=== PATIENT | female | born 1990 | race Caucasian/White ===

== ENCOUNTER → 2019-11-02 12:28 | Outpatient (CLI) | payer BC, SELFPAY ==
--- NOTE | ~2019-11-02 | US_ITS ---
EXAMINATION: US pelvic complete DATE: 11/02/2019 12:43 INDICATION: Displacement of IUD. Pelvic pressure. Comparison:Ultrasound dated 08/24/2018 TECHNIQUE: Multiple transabdominal sonographic images of the pelvis performed. FINDINGS: The uterus measures 9.7 x 3.3 x 4.7 cm. There is an IUD present in expected position in the endometrium. The endometrial complex measures 6 mm. The right ovary measures 3.4 x 2.3 x 2 cm and the left ovary measures 4.1 x 2.3 x 2.2 cm. There are small follicles in each ovary. There is no free fluid in the pelvis. There are no abnormal masses seen on either side. IMPRESSION: 1. Unremarkable pelvic ultrasound. Reviewed, dictated and finalized at location A.
== END ==
PROVIDERS: PCP Family Medicine; Visit Provider Nurse Practitioner
DX: T83.32XA Displacement of intrauterine contraceptive device, initial encounter (principal)
CPT/HCPCS: 76856

== ENCOUNTER 2020-09-12 15:55 | Outpatient (CLI) | payer OTHER, MEDICAID, SELFPAY ==
--- NOTE | ~2020-09-12 | US_ITS ---
EXAMINATION: US pelvic complete w TV EXAM DATE: 09/12/2020 16:39 INDICATION: Pelvic pain. TECHNIQUE: Pelvic transabdominal and transvaginal sonogram was performed. There are multiple graysca le and Doppler images available for interpretation. Comparison is made to prior examination from 11/01. FINDINGS: Uterus measures 7.7 x 2.8 x 3.5 cm, with IUD centrally located inside the endometrial cavi ty. Endometrial stripe measures 3 mm, within normal limits. There is no free pelvic fluid. Right adnexa: The ovary is not identified. There is no adnexal mass. Left adnexa: The ovary measures 3.3 x 1.7 x 1.7 cm and is morphologically normal. Ovarian vascular fl ow confirmed. IMPRESSION: 1. Unremarkable pelvic ultrasound exam. Reviewed, dictated and finalized at location A.
== END 2020-09-12 15:56 | disposition home or self-care (01) ==
LOC: ANHIMG 15:59
PROVIDERS: PCP Family Medicine; Visit Provider Nurse Practitioner
DX: T83.32XA Displacement of intrauterine contraceptive device, initial encounter (principal); R10.2 Pelvic and perineal pain
CPT/HCPCS: 76830; 76856

== ENCOUNTER 2022-10-02 17:31 | Outpatient (CLI) | payer BC, SELFPAY ==
--- NOTE | ~2022-10-02 | XR_ITS ---
EXAM: XR knee LT 3V DATE: 10/02/2022 17:53 HISTORY: left knee pain . COMPARISON: None available. FINDINGS: Normal mineralization. No fracture or dislocation. No lytic or blastic lesion. Joint space s are maintained. No erosion or periosteal change. Soft tissues within normal limits. IMPRESSION: Normal left knee radiograph findings. Reviewed, dictated and finalized at location K.
== END 2022-10-02 17:32 ==
PROVIDERS: PCP Family Medicine; Visit Provider Physician Assistant
DX: M25.562 Pain in left knee (principal)
CPT/HCPCS: 73562

== ENCOUNTER 2023-08-26 00:33 | Day surgery (SDC) | payer BC, SELFPAY ==
[2023-08-15 10:38] VITALS: BMI 35.3
[2023-08-26 11:34] VITALS: BP 122/96; PULSE 77; RESP 18; TEMP 36.4; O2SAT 100
--- NOTE | 2023-08-26 11:42 | WPDANESEPPF ---
Anes - Initial Pre Proc Eval Procedure: Operation Date: 08/26/23 14:30 Proposed Procedures p Colonoscopy - Daniel Plata MD Date/Time: 08/26/23 11:42 Surgeon: Daniel Plata MD Pre Op Diagnosis: Hemorrhage of anus and rectum Patient Data Age: 33 Gender: F Height: 1.57 m Weight: 86.3 kg Last Vital Signs Temp 97.6 F 08/26/23 11:34 Pulse 77 08/26/23 11:34 Resp 18 08/26/23 11:34 BP 122/96 H 08/26/23 11:34 Pulse Ox 100 08/26/23 11:34 O2 Del Method Room Air 08/26/23 11:34 Allergies Allergy/AdvReac Type Severity Reaction Status Date / Time cephalexin Allergy Intermediate Hives Verified 08/26/23 11:32 Home Medications Medication Instructions Recorded Confirmed Type albuterol sulfate 90 mcg/actuation 1 inh inhalation Q4H PRN shortness 02/17/23 08/15/23 Rx aerosol inhaler of breath or wheezing #6.7 grams phentermine 37.5 mg tablet 37.5 mg PO DAILY #30 tabs 07/22/23 08/15/23 Rx Women's Probiotic 1 tab-cap PO DAILY 08/15/23 08/15/23 History methocarbamol 750 mg tablet 750 mg PO BID PRN Spasms 08/15/23 08/15/23 History Patient hx anesthesia problems: none Family hx anesthesia problems: none Results Review: All pre-operative results and documents have been reviewed as part of the pre-operative evaluation. [facility] Past Medical History Medical History ADD (attention deficit disorder) Family History Family History Grandparent Hypertension Cerebrovascular accident Father COPD (chronic obstructive pulmonary disease) Mother Hyperlipidemia Irritable bowel syndrome Depression Hypertension Social History Social History (Updated 07/22/23 @ 10:50 by Gloria Fritz MA) Years smoked: 10 Smoking status: Former smoker Tobacco type: cigarettes Alcohol intake: current Substance use: never Substance use type: does not use Do You Feel Safe in your Home?: Yes Lack of Transportation: No Lack of Food: Never True Current Housing: I Have Housing Concerned About Future Housing: No Difficulty Paying Gas/Electric Bills: No Difficulty Paying for Meds: No Currently Unemployed: No Education: Trade/Vocational Certificate Difficulty w/ Childcare or Family Care: No Living arrangements: with family Occupation/Education: occupation Gender identity (if verbalized by the patient): Female Sexual Orientation (if Verbalized by the Patient): Straight or Heterosexual Spiritual care concerns: No Anes - Eval Final PreProcedure Day of Procedure 08/26/23 11:42 Patient weight: obese Heart: regular rate and rhythm Lungs: clear to auscultation Airway: Mallampati scale class II Neurological: alert and oriented Last oral intake: >/= 8 hours ASA classification: II Emergent: no Anesthetic plan: proceed Anesthesia type and monitoring: general GIVS and standard monitoring Results Review: All pre-operative results and documents have been reviewed as part of the pre-operative evaluation. Informed Consent: The patient's anesthetic plan and its attendant risks and benefits were discussed with the patient/family/POA. Questions were solicited and answers provided to the satisfaction of the patient/family/POA.
[2023-08-26] MEDS: LACTATED RINGERS 1,000 ML 150 ML IV CONT (11:43)
--- NOTE | 2023-08-26 11:51 | PM.HPGS ---
History of Present Illness History of Present Illness Consent: Risks, benefits, and alternatives have been discussed and questions answered. Patient agrees to proceed with procedure. Chief complaint: Hemorrhage of anus and rectum Narrative: Sara Kennedy is a 33 year old female with episode of rectal bleeding, never had colonoscopy Review of Systems Review of Systems: All systems reviewed & are unremarkable except as noted in HPI and below PMFSH Past Medical History Medical History (Updated 08/26/23 @ 11:55 by Daniel Plata MD) ADD (attention deficit disorder) Rectal bleeding Family History Family History Grandparent Hypertension Cerebrovascular accident Father COPD (chronic obstructive pulmonary disease) Mother Hyperlipidemia Irritable bowel syndrome Depression Hypertension Social History Social History (Updated 07/22/23 @ 10:50 by Gloria Fritz MA) Years smoked: 10 Smoking status: Former smoker Tobacco type: cigarettes Alcohol intake: current Substance use: never Substance use type: does not use Do You Feel Safe in your Home?: Yes Lack of Transportation: No Lack of Food: Never True Current Housing: I Have Housing Concerned About Future Housing: No Difficulty Paying Gas/Electric Bills: No Difficulty Paying for Meds: No Currently Unemployed: No Education: Trade/Vocational Certificate Difficulty w/ Childcare or Family Care: No Living arrangements: with family Occupation/Education: occupation Gender identity (if verbalized by the patient): Female Sexual Orientation (if Verbalized by the Patient): Straight or Heterosexual Spiritual care concerns: No Meds Home Medications and Allergies Home Medications Medication Instructions Recorded Confirmed Type albuterol sulfate 90 mcg/actuation 1 inh inhalation Q4H PRN shortness 02/17/23 08/15/23 Rx aerosol inhaler of breath or wheezing #6.7 grams phentermine 37.5 mg tablet 37.5 mg PO DAILY #30 tabs 07/22/23 08/15/23 Rx Women's Probiotic 1 tab-cap PO DAILY 08/15/23 08/15/23 History methocarbamol 750 mg tablet 750 mg PO BID PRN Spasms 08/15/23 08/15/23 History Allergies Allergy/AdvReac Type Severity Reaction Status Date / Time cephalexin Allergy Intermediate Hives Verified 08/26/23 11:32 Vital Signs Vital Signs - 24 hr 08/26/23 11:34 Temperature 97.6 F Pulse Rate 77 Respiratory Rate 18 Blood Pressure 122/96 H Pulse Oximetry 100 Oxygen Delivery Room Air Exam Const: General: comfortable and no acute distress HENMT: Face/Nose/Sinus: Normal nares present Eyes: General: appearance normal, both eyes and all related structures Neck: Neck: no JVD Resp: Auscultation: clear to auscultation bilaterally Cardio: Rate: regular rate Rhythm: regular rhythm GI: Inspection: non-distended GI Palp: Yes Soft to palpation Skin: General skin exam: normal color Neuro: General: gait normal Speech: normal speech Extrem: General: normal to inspection Psych: Mental Status: mental status grossly normal Assessment and Plan Assessment and plan (1) Rectal bleeding: Code(s): K62.5 - Hemorrhage of anus and rectum Status: Acute Assessment and Plan: probably perianal colonoscopy
[2023-08-26 12:08] VITALS: BP 104/64; PULSE 76; RESP 20; O2SAT 100
[2023-08-26 12:18] VITALS: BP 111/76; PULSE 70; RESP 24; O2SAT 100
[2023-08-26 12:28] VITALS: BP 103/83; PULSE 63; RESP 20; O2SAT 100
== END 2023-08-26 12:37 | disposition home or self-care (01) ==
PROVIDERS: PCP Family Medicine; Referring Provider Family Medicine; Visit Provider Internal Medicine Gastroenterology
PROC: 0DJD8ZZ Inspection of Lower Intestinal Tract, Via Natural or Artificial Opening Endoscopic (ICD-10-PCS; CPT 45378; principal; 2023-08-26 14:30)
DX: K92.1 Melena (principal); K64.8 Other hemorrhoids; F98.8 Other specified behavioral and emotional disorders with onset usually occurring in childhood and adolescence; E66.9 Obesity, unspecified; Z68.34 Body mass index [BMI] 34.0-34.9, adult; Z79.51 Long term (current) use of inhaled steroids; Z87.891 Personal history of nicotine dependence; Z82.49 Family history of ischemic heart disease and other diseases of the circulatory system
CPT/HCPCS: 45378; J2704; J7120

== ENCOUNTER 2024-11-03 14:18 | Outpatient (CLI) | payer BC, SELFPAY ==
--- NOTE | ~2024-11-03 | MR_ITS ---
MRI of the right knee Clinical history: Injury Technique: Coronal proton density and proton density-weighted images, sagittal proton-density and T2 fat-sat images, and axial proton-density fat-saturated images were acquired. Findings: Anterior and posterior cruciate nodes are intact. Medial collateral ligament and the latera l collateral ligament complex are intact. Popliteus tendon is intact. Medial and lateral menisci are intact, without evidence of tear. Articular cartilage is well preserved throughout the knee. Bone marrow signals are unremarkable. Extensor mechanism is intact. No joint effusion. There is a large fluid collection in the anterior torres bcutaneous soft tissues at the distal thigh and prepatellar region, measuring up to approximately 7.9 x 2.4 x 9.0 cm in extent. Impression: Large fluid collection in the anterior subcutaneous soft tissues measuring at least 7.9 x 2.4 x 9.0 c m. Correlate for bursitis or posttraumatic fluid collection, including possibility of Riley-Lavalee l esion. No osseous or articular reality evident otherwise. Reviewed, dictated and finalized at location . Impression: Large fluid collection in the anterior subcutaneous soft tissues measuring at l east 7.9 x 2.4 x 9.0 cm. Correlate for bursitis or posttraumatic fluid collecti on, including possibility of Riley-Lavalee lesion. No osseous or articular reality evident otherwise.
== END 2024-11-03 14:19 | disposition home or self-care (01) ==
LOC: GOSHIMG 14:18
DX: S89.91XA Unspecified injury of right lower leg, initial encounter (principal); S80.01XA Contusion of right knee, initial encounter; R26.89 Other abnormalities of gait and mobility; X58.XXXA Exposure to other specified factors, initial encounter
CPT/HCPCS: 73721

== ENCOUNTER 2024-12-09 03:01 | Day surgery (SDC) | payer BC, SELFPAY ==
[2024-12-02 11:01] VITALS: BMI 34.2
--- NOTE | 2024-12-02 11:08 | PC.NURSE ---
Report to the Outpatient Waiting Room, entrance under the green pavilion located off [facility], at time _0830_ on date _[id number]_. Planned Procedure Time: _1030_.? Time changes happen often and if your time is changed the preop area will call you the afternoon before. - You and your visitor will be asked to self-screen and do not enter if you have any COVID symptoms. Please call surgeon if you need to reschedule. - A mask is optional within the hospital at this time. Patients may have clear liquids (water, carbonated beverages, clear teas, apple juice) until 3 hours prior to surgery with a maximum of 20 ounces. - No food from midnight until time of surgery and no smoking, or chewing tobacco (or any form of nicotine). No chewing gum, candy or mints. Take only the following medications with a SIP of water on the morning of surgery: ___None____ DO NOT STOP ANY OF YOUR OTHER PRESCRIPTION MEDICATIONS PRIOR TO SURGERY EXCEPT THE FOLLOWING Hold all vitamins and supplements for 3 days per anesthesiologist. Medications to discontinue per physician ___Ibuprofen stop now. ____Acetaminophen OK to take. Date to take last dose Please no make-up, nail romanian, hairspray, perfume, deodorant, or body powder the day of surgery.? No jewelry (including any body piercings) or valuables the day of surgery, leave them at home.? Please take a shower or bath the night before, or the morning of, surgery with an antibacterial soap.? Wear comfortable, loose fitting clothing.? - Jewelry must be removed prior to entering the operating room.? Rings and piercings that are not removed may be cut off. - The hospital will not accept responsibility for valuables.? - Please leave all valuables, including medications, at home the day of surgery. If you are going home after surgery, a licensed sales route driver helper must drive you home.? - NO public transportation without another adult if you receive anesthesia. - We recommend that an adult stay with you for 24 hours following discharge. - We also recommend that you do not drive, make important decision, drink alcoholic beverages, or take any drugs that were not prescribed by your health care provider for at least 24 hours after your discharge time. Follow any additional instructions given to you from your surgeon. Telephone instructions given to __Sara___and asked if any additional questions and then verbalized understanding. Patient advised to call surgeon office or pre surgery nurse liaison [phone] if any additional questions.
[2024-12-09] VITALS (9 sets, daily range): BP systolic 100–119; BP diastolic 63–82; PULSE 62–99; RESP 11–18; TEMP 36–36.4; O2SAT 97–100
--- OUTSIDE RECORDS SUMMARY | 2024-12-09 03:03 | XMS_ITS | Continuity of Care Document ---
Author Organization [facility]. If a dditional information is needed, contact Health Information Management at [phone] Address [address] [place] [address] Phone Care Team Providers Care Parking Lot Supervisor Name Role Phone Unavailable Unavailable Unavailable Unavailable Unavailable Unavailable Unavailable Unavailable Unavailable Unavailable Unavailable Unavailable Problems Traumatic hematoma Onset:16-Oct-2024 León Pate DO Traumatic hematoma Onset:16-Oct-2024 León Pate DO Allergies and Adverse Reactions Cephalexin(Allergy) Onset: 16-Oct-2024 Reaction:HIVES Medications methocarbamol 750 MG Oral Tablet [Robaxin];750 MILLIGRAM X1ED Quantity:1 León Pate DO Start:22-Mqu-6941Gyf:16-Oct-2024 Comments:[id number] oxyCODONE hydrochloride 5 MG Oral Tablet;10 MILLIGRAM X1ED Quantity:2 León Pate DO Start:38-Nzs-1864Txc:16-Oct-2024 Comments:[id number] Administration Instructions:Monitor patient for risk of fall acetaminophen 325 MG Oral Tablet [Tylenol];325 MILLIGRAM X1ED Quantity:1 León Pate DO Start:03-Ybd-9880Coi:16-Oct-2024 Comments:[id number] Administration Instructions:Limit total acetaminophen dose to 4 grams daily; limit totalacetaminophen dose to 2 grams daily for patients withhepatic dysfunctionIf this medication is ordered PRN Temp >, follow thePRN Antipyretic Sequence per P T/MEC 1 ML ketorolac tromethamine 30 MG/ML Injection;30 MILLIGRAM X1ED Quantity:1 León Pate DO Start:82-Wee-0035Noy:16-Oct-2024 Comments:[id number] Administration Instructions:IV push over 15 secondsPLEASE CHECK PATIENT'S AGENOTE: DO NOT DISPENSE IF SCr IS > 5 MG/DLDECREASE DOSE TO 15 MG IF CRCL<30 ML/MIN OR PT>65 YO acetaminophen 325 MG / HYDROcodone bitartrate 5 MG Oral Tablet [Cantil];1 TABLET X1ED Quantity:1 León Beronica Herlinda ROSADO Start:71-Jzv-9542Rmr:16-Oct-2024 Comments:[id number] Administration Instructions:Limit total acetaminophen dose to 4 grams daily; limit totalacetaminophen dose to 2 grams daily for patients withhepatic dysfunctionMonitor patient for risk of fall Procedures RT KNEE AP/LAT/1 OBLIQ/TUNNELResult:[facility] NASIR [facility]IRARD [facility] Phys: Beronica Traore DO [address] [facility] : 1990 Age: 34 Sex: [place] [address] Acct: [id number] Loc: [facility]SIE PHONE #: Exam Date: 10/16/2024 Status: REG ER FAX #: Radiology No: Unit No: [id number] EXAMS: REASON FOR EXAM: CPT CODE: [id number] XR KNEE RIGHT AP/LAT/1O right knee injury 69402 PROCEDURE: XR Right Knee Complete, 4 or More Views CLINICAL INDICATION: right knee injury; INJURY-ACCIDENT TECHNIQUE: Four or more views of the right knee. COMPARISON: None available. FINDINGS: BONES/JOINTS: Unremarkable. No acute fracture. No dislocation. SOFT TISSUES: Pronounced prepatellar and distal anterior leg soft tissue swelling/hematoma. IMPRESSION: 1. No acute fracture or dislocation. 2. Pronounced prepatellar and distal anterior leg soft tissue swelling/hematoma. Electronically signed by: Roldan Travis MD 10/16/2024 05:15 AM PDT at 0515 Reported and signed by: Roldan Travis MD CC: Tech: ANEUDY Whitney Time: DAP (Gy m2): Air Kerma: CTDI: CTDI/DLP: Trnscrbd Dt/Tm: 10/16/2024 (05) PWS Electronic Signature Date/Time: 10/16/2024 (15)Printed Date/Time: 10/16/2024 (0517) BATCH NO: N/A PAGE 1 Signed Report Date:16-Oct-2024 Status:Completed Social History Smoking Status Never smoked tobacco Recorded: 16-Oct-2024 Vital Signs 16-Oct-2024 02:30 Vkxivokmzwr62.9f Comments:98.9 Pulse87/min Comments:87 Respiratory Rate17/min Comments: 17 O2 SAT95% Comments:95 BP Blvbzgef242wl[Hg] Comments:12 7 BP Qcrqtnbvn22ov[Hg] Comments:87 Oxygen delivery devices: Comment s:Room air Height5.9773655[ft_us] Comments: 5 Jyufrm39.364kg Comments:86.364 16-Oct-2024 02:30 BMI34.8kg/m2 Comments:34.8 Encounters Emergency Encounter Reason:INJURY-ACCIDENT Encounter Diagnosis:Contusion of unspecified thigh, initial encounter,Unspecified fall, initial encounter,Activity, soccer,Contusion of right knee, initial encounter 16-Oct-2024 02:40Md18-Phq-2924 06:05 [facility] Discharge Disposition:Discharged to home or self care (routine discharge) León Pate BP-08-Xib16-Oct-2024 [facility]EMERGENCY PROVIDER REPORTREPORT#:[id number] REPORT STATUS: SignedDATE:10/16/24 TIME: 0338PATIENT: NASIR GIRARD UNIT #: [id number]#: [id number] ROOM/BED:: 90 AGE: 34 SEX: F PCP PHYS: NO PRIMARY OR FAMILY PHYSICIANSERVICE AUTHOR: Beronica Traore SRV REP SRV TM: 0220* ALL edits or amendments must be made on the electronic/computer document *HPI-Knee Prob/InjGeneralConfirmed Patient YesInitial Greet Date/Time 10/16/24 022PresentationChief Complaint Knee injury R, Knee swelling RHx Obtained From PatientPast Medical History - AdultStated Complaint INJURY-ACCIDENTAllergiesCoded Allergies:cephalexin (From KEFLEX) (HIVES 10/16/24)Calculated Suicide Risk (nurs) No riskSmoking status for patients 13 years old or older: Never SmokerPhysical ExamVital SignsVital SignsFirst Documented: Result Date Time Pulse Ox 95 10/16 0230 B/P 127/87 10/16 0230 O2 Delivery Room air 10/16 0230 Temp 98.9 10/16 0230 Pulse 87 10/16 0230 Resp 10/16 0230Last Documented: Result Date Time Pulse Ox 95 10/16 0230 B/P 127/87 10/16 0230 O2 Delivery Room air 10/16 0230 Temp 98.9 10/16 0230 Pulse 87 10/16 0230 Resp 17 10/16 0230Review of Vital Signs ReviewedFree Text PE NotesFree Text PE NotesGeneral: Awake, Alert, No acute distress, Not toxic appearing.Head: Atraumatic, Normocephalic.Eyes: PERRLA, EOMI B/L.ENT: Airway patent, Mucous membranes moist.Neck: Supple, No nuchal rigidity, Negative Brudzinski's, Full ROM.Chest/Resp: Breath sounds normal, No respiratory distress, No wheezing /stridor, No chest wall tenderness / deformity / crepitus.Cardio: Rate normal, Regular rhythm. Peripheral pulses intact. Cap refill <2seconds. 2+ DP and PT pulses B/L.Abdomen: Soft, Nontender. No guarding or rebound tenderness. No CVA tenderness B/L.MSK/skin: Large amount of bruising, swelling and hematoma noted over patient'santerior right knee and just superior to patient's right knee limiting hermobility/ROM of her right knee due to the amount of pain and swelling. Nosignificant increased warmth or redness. No acute deformity /decreased ROM. Noother significant tenderness or swelling / edema of BLE's or bony pelvis. Allmuscular compartments soft. Negative Valladares's test bilaterally. Skin colorotherwise normal, Warm, Dry, Intact. No crepitus, petechiae, rash, cyanosis orpallor.Neuro: A O x3, GCS 15, No facial asymmetry, No dysarthria, No motor deficits, Nosensory deficits. Pt able to move all 4 extremities upon command voluntarilywithout issue.Interpretation DiagnosticsLab Results InterpretationResultsRecent Impressions:RADIOLOGY - XR KNEE RIGHT AP/LAT/1OBLQ/TNL 10/16 0304 Report Impression - Status: SIGNED Entered: 10/16/2024 0517IMPRESSION:1. No acute fracture or dislocation.2. Pronounced prepatellar and distal anterior leg soft tissueswelling/hematoma.Electronically signed by: Roldan Travis MD 505:15 AM PDT RP Workstation: [id number] By: VANDANA - Roldan Travis,OCHOAe-Evaluation MDMFree Text MDM NotesAdditional TextPRESENTING PROBLEM: R knee injuryIndependent history provided by: PatientHPI:Patient is a 34-year-old female who denies any PMH who is presenting to the EDvia walk-in accompanied by her friend for evaluation of a right knee injury.Patient states there visiting from out of town and [place] drive [place] to [place] the morning. 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 Since then patient has worsening swelling, bruising and painin her right knee which is currently 10/10 in severity in his developed a pins/needles sensation on her right knee. Concerned she could have broken somethingshe came to the ED for evaluation. Patient denies any pain or injury anywhereelse, being on any blood thinners, any history of bleeding or clotting disorder,weakness, SOB, CP, head injury, abd pain, or any other symptoms or complaints.Complete ROS is obtained. All systems reviewed and negative unless otherwisenoted in the HPI.Past medical history: [Please refer to nursing documentation].Past surgical history: [Please refer to nursing documentation].Past family history: [None significant or pertinent to the chief complaint].I have confirmed the patient and have reviewed and agree with the availablenursing notes.EXTERNAL RECORDS:Reviewed prior medical records and PCI.PHYSICAL EXAM: Full detailed physical exam documented in Focused PE section seenabove. Please refer to this section for further details.RISK ASSESSMENT:Please see Risk Section for further detail (if applicable).INDEPENDENT INTERPRETATIONS:My independent interpretation of imaging:XR imaging of pt's right knee was obtained which returned remarkable forpronounced prepatellar and distal anterior leg soft tissue swelling/hematoma.XR imaging o/w unremarkable / negative for acute process. No evidence of acutefracture / dislocation / subluxation, retained radiopaque foreign body,necrotizing infection / fasciitis, osteomyelitis, or other acute processappreciated.RADIOLOGY STUDIES: Radiology studies were interpreted by the radiologist.Radiology studies have been ordered, with independent interpretations of theresults reviewed and considered in the medical decision making process by myself, the ED physician (see MDM for further detail).SHARED DECISION MAKING: All aspects of care were discussed, and patient and/orresponsible parties was / were intimately involved in today s workup.MDM / DIFFERENTIAL DIAGNOSES CONSIDERED:My independent interpretations of any tests (such as labs, EKG, imaging, orotherwise) in addition to differential diagnoses considered and use of riskassessment tools / reasoning asindicated in specified sections above or in MDM / re-evaluation / progress note(s).Upon initial arrival to the ED, patient is in no acute distress, VSS. Physicalexam as indicated above.Based on patient's Hx, physical exam, and workup in the ED, patient's Sx's mostlikely secondary to pronounced hematoma and soft tissue swelling of anteriorright knee secondary trauma. Per patient's request after discussion of risksversus benefits, small pocket of on coagulated hematoma able to be appreciatedon ultrasound imaging so attempted to aspirate with 18 gauge needle (which wasperformed under US guidance guidance at ED bedside by myself), however I wasonly able aspirate 5 cc of blood; regardless patient reported improvement insymptoms with this. No evidence of / low suspicion for acute fracture /subluxation / dislocation, compartment syndrome, acute ischemic limb or vascularinjury / compromise, infection / abscess, necrotizing infection / fasciitis,septic arthritis, septic thrombophlebitis, lymphangitis, osteomyelitis, Achillestendon rupture, DVT, SVT, mass / malignancy, or other acute process requiringfurther evaluation in the ED or hospital or emergent specialty consultation.Patient and / or responsible parties were counseled on results and the plan ofcare, importance of close outpatient f/u with their PCP, and all of patient's Q's were answered. Patient was given crutches if appropriate and counseled on theuse by ED nursing staff prior to discharge. Patient and / or responsibleparties were counseled on RICE therapies, conservative management of symptoms athome, and return precautions to the ED. Patient was subsequently discharged instable condition.This note was partially created using voice recognition software and isinherently subject to errors including dose of syntax and sound alikesubstitutions which may escape proof reading. In such instances, originalmeaning may be extrapolated by contextual derivation.Re- Evaluation/Progress Compartment SyndromeThere are no signs or symptoms of compartment syndrome in the injured extremityat the time of this examination. Any pain the patient has is in proportion tothe injury, the peripheral circulation is intact, capillary refill is notdelayed, and there is no numbness, tingling or paresthesia.ED CourseMedication(s) OrderedMedication(s) Ordered:Autonomic Drugs Sig/Noe Start time Last Medication Dose Route Stop Time Status Admin Methocarbamol 750 MG X1ED STA 10/16 0533 DC 10/16 PO 10/16 0534 0536Central Nervous System Agents Sig/Noe Start time Last Medication Dose Route Stop Time Status Admin Oxycodone HCl 10 MG X1ED STA 10/16 0527 DC / PO 10/16 0528 0536 Oxycodone HCl 5 MG X1ED STA 10/16 0526 CAN PO 10/16 0527 Acetaminophen 325 MG X1ED STA 10/16 0228 DC / PO 10/16 0229 0239 Hydrocodone Bitart/ 1 TAB X1ED STA 10/16 0228 DC 10/16 Acetaminophen PO 10/16 0229 0239 Ketorolac 30 MG X1ED STA 10/16 0228 DC 10/16 Tromethamine IM 10/16 0229 0239Patient Discharge DepartureVital Signs/ConditionVital SignsFirst Documented: Result Date Time Pulse Ox 95 10/16 0230 B/P 127/87 10/16 0230 O2 Delivery Room air 10/16 0230 Temp 98.9 10/16 0230 Pulse 87 10/16 0230 Resp 17 10/16 0230Last Documented: Result Date Time Pulse Ox 95 / 0230 B/P 127/87 10/16 0230 O2 Delivery Room air 10/16 0230 Temp 98.9 10/16 0230 Pulse 87 / 0230 Resp 17 10/16 0230All vital signs available at the time of this entry have been reviewed.Condition Stable, ImprovedClinical ImpressionClinical ImpressionPrimary Impression: Traumatic hematoma of right kneeSecondary Impressions: Traumatic hematoma of thighDisposition DecisionDischarge )( Discharged to Home Yes )( Time 0533 )( Date 10/16/24Discharge/Care PlanCounseled Regarding Diagnosis, Imaging studies, Prescriptions, Need for transfer, Need for follow-up, Wound care(Auto) PrescriptionsCurrent Visit ScriptsACETAMINOPHEN (TYLENOL EXTRA STRENGTH TAB) 1,000 MG PO Q6H PRN PRN FEVER AND/ORPAIN ACETAMINOPHEN (TYLENOL EXTRA STRENGTH TAB) 1,000 MG PO Q6H PRN PRN FEVERAND/OR PAIN #60 TABIBUPROFEN (MOTRIN 800 MG) 800 MG PO Q6H PRN PRN PAIN/INFLAMMATION IBUPROFEN (MOTRIN 800 MG) 800 MG PO Q6H PRN PRN PAIN/INFLAMMATION #30 TABMethocarbamol (ROBAXIN 500 MG) 1,000 MG PO QID Methocarbamol (ROBAXIN 500 MG) 1,000 MG PO QID #56 TAB As needed for muscle spasm painLIDOCAINE (LIDODERM PATCH 5%) 1 PATCH TRANSDERM DAILY LIDOCAINE (LIDODERM PATCH 5%) 1 PATCH TRANSDERM DAILY #30 PATCH Apply for 12 hours then remove for 12 hours.Patient Instructions Acute Knee Pain, Adult, ED Compartment Syndrome Risk, EDHematoma, RICE Therapy for Routine Care of Injuries, Oqbv-zl-MewtLmmnuevaePorexlfw Referral: NO PRIMARY OR FAMILY PHYSICIANProvider Referral: Darshan Sawant MD Follow-Up: 1-2 DAYS Notes: Set an appointment with your PCP (or the listed physician to establish a PCP if you do not already have one) regarding your symptoms, ED visit and workup, and any persistent / incidental findings for re-evaluation, follow- up, and potential need for further workup and management and to discuss referral to Orthopedic surgery for potential need for further evaluation for ligamentous injury of the knee or other traumatic injury complication Address: [address] [place] [address], [address] [address]Iugqrpvni FormsWORK EXCUSE Extremity Inj Discharge NoteThe patient is discharged home with supportive care, a plan for pain control,and follow-up instructions that detail what to expect over the next 48 hours andwhat symptoms should prompt immediate return to the ED, including the symptomsof compartment syndrome. Follow-up instructions have been explained in detail tothe patient, and the instructions have been provided in written format. Thepatient is comfortable with the plan of care and has expressed an understandingof the discharge instructions. The patient is aware that any significant changein condition or worsening of symptoms should prompt an immediate call to theprimary or designated physician. If that is not successful the patient shouldcall or return to this or the closest emergency department or call 911. at 0535RPT #: [id number] OF REPORT Plan of Treatment Future Tests Future scheduled test information is unavailable Pending Tests Pending diagnostic test information is unavailable Future Visits Future appointment information is unavailable Referrals to Other Providers Reason for Referral Referral Start Date Provider Provider Contact Information Provider Address NO PRIMARY OR FAMILY PHYSICIAN Set an appointment with your PCP (or the listed physician to establish a PCP if you do not already have one) regarding your symptoms, ED visit and workup, and any persistent / incidental findings for re-evaluation, follow-up, and potential need for further workup and management and to discuss referral to Orthopedic surgery for potential need for further evaluation for ligamentous injury of the knee or other traumatic injury complication Darshan Sawant MD Work Phone: [phone] [facility], [address] [address] Future Procedures Future procedure information is unavailable Future Medications Future medication information is unavailable Patient Instructions Instruction Admit Date Acute Knee Pain, Adult October 16, 2024 4 :19am RICE Therapy for Routine Care of Injurie s, [facility]awy October 16, 2024 4:19am ED Hematoma October 16, 2024 4:19 am ED Compartment Syndrome Risk October 16, 2024 4:19am Assessments Diagnosis Onset Date Resolution Status Admit Date Traumatic hematoma of right knee Act keyona October 16, 2024 4:19am Traumatic hematoma of thigh Active October 16, 2024 4:19am
--- OUTSIDE RECORDS SUMMARY | 2024-12-09 03:03 | XMS_ITS | Continuity of Care Document ---
Author Organization [facility] Address [address] [place] [address] Phone Care Team Providers Care [employer] Employee Name Role Phone Lechuga OD, Florentino Unavailable Unavailable Advance Directives Directive Yes / No Effective Date File Name No Information Encounters Encounter Description Practice Location Reason(s) For Visit Diagnoses Date Provider Providers Copied on Encounter [facility], [address], [place], [place], [id number], [place] tel:[phone] [facility] No Information [address] Lechuga OD Florentino. [address], [place], [address], [place]. tel:[phone] Family History Family Member Type Diagnosis Age At Onset No Information Payers Payer name Insurance type Covered alliance party ID Authoriza tion(s) Medicaid [facility] [id number] Social History Type Description Quantity Date Captured [...]
--- NOTE | 2024-12-09 06:39 | WPDHPUPDATE1 ---
History and Physical Update Update Date/Time: 12/09/24 06:39 History and Physical has been reviewed, including an updated exam of the patient. There are NO changes in the patient's condition. Risks, benefits, and alternatives have been discussed and questions answered. Patient agrees to proceed with procedure.
[2024-12-09] MEDS: ACETAMINOPHEN 500 MG TABLET 1000 MG PO (09:41)
[2024-12-09] MEDS: KETOROLAC 15 MG/ML VIAL (*BKC) IV PUSH (09:41)
[2024-12-09] MEDS: LACTATED RINGERS 1,000 ML 30 ML IV CONT ×2 (10:00→11:22)
--- NOTE | 2024-12-09 10:00 | P.PNAN_ITS ---
Anes - Initial Pre Proc Eval Procedure: Operation Date: 12/09/24 10:30 Proposed Procedures p Right Knee Debridement - Leonardo Rider MD Date/Time: 12/09/24 10:00 Surgeon: Leonardo Rider MD Pre Op Diagnosis: right knee hematoma Patient Data Age: 34 Gender: F Height: 1.59 m Weight: 86.5 kg Last Vital Signs Temp 36.0 C L 12/09/24 09:42 Pulse 72 12/09/24 09:42 Resp 15 12/09/24 09:42 BP 119/78 12/09/24 09:42 Pulse Ox 100 12/09/24 09:42 O2 Del Method Room Air 12/09/24 09:42 Allergies Allergy/AdvReac Type Severity Reaction Status Date / Time cephalexin Allergy Intermediate Hives Verified 12/09/24 09:40 Home Medications ?Medication ?Instructions ?Recorded ?Confirmed ?Type Women's Probiotic 1 tab-cap PO DAILY 08/15/23 12/02/24 History phentermine 37.5 mg tablet 37.5 mg PO DAILY #30 tabs 10/01/24 12/02/24 Rx gabapentin 300 mg capsule 300 mg PO TID #90 caps 11/02/24 12/02/24 Rx ibuprofen 800 mg tablet 800 mg PO Q6H #90 tabs 11/02/24 12/02/24 Rx methocarbamol 750 mg tablet 750 mg PO BID PRN Spasms #60 tabs 11/02/24 12/02/24 Rx Patient hx anesthesia problems: none Family hx anesthesia problems: none Results Review: All pre-operative results and documents have been reviewed as part of the pre- operative evaluation. [facility] Past Medical History Medical History Traumatic hematoma of right knee Rectal bleeding ADD (attention deficit disorder) Family History Family History Grandparent Hypertension Cerebrovascular accident Father COPD (chronic obstructive pulmonary disease) Mother Hyperlipidemia Irritable bowel syndrome Depression Hypertension Social History Social History Years smoked: 10 Smoking status: Never smoker Tobacco type: cigarettes Alcohol intake: current Substance use: never Substance use type: does not use Do You Feel Safe in your Home?: Yes Lack of Transportation: No Lack of Food: Never True Current Housing: I Have Housing Concerned About Future Housing: No Difficulty Paying Gas/Electric Bills: No Difficulty Paying for Meds: No Currently Unemployed: No Education: Trade/Vocational Certificate Difficulty w/ Childcare or Family Care: No Living arrangements: with family Occupation/Education: occupation Gender identity (if verbalized by the patient): Female Sexual Orientation (if Verbalized by the Patient): Straight or Heterosexual Spiritual care concerns: No Anes - Eval Final PreProcedure Day of Procedure 12/09/24 10:00 Patient weight: obese Heart: regular rate and rhythm Lungs: clear to auscultation Airway: Mallampati scale class II Neurological: alert and oriented Last oral intake: >/= 8 hours ASA classification: II Emergent: no Anesthetic plan: proceed Anesthesia type and monitoring: general LMA and standard monitoring Results Review: All pre-operative results and documents have been reviewed as part of the pre- operative evaluation. Informed Consent: The patient's anesthetic plan and its attendant risks and benefits were disc ussed with the patient/family/POA. Questions were solicited and answers provided to the satisfaction of the patient/family/POA.
[2024-12-09] MEDS: CLINDAMYCIN 900 MG/D5W 50 ML 900 MG/50 ML PIGGYBACK 50 MG IVPB (10:30)
[2024-12-09 10:40] LABS: BEDSIDEPREGUCG Negative (Negative)
[2024-12-09] MEDS: BUPIVACAINE/EPINEPHRINE 0.5% 50 ML VIAL 20 ML INFILTRATE (10:54)
--- NOTE | 2024-12-09 11:31 | P.OP_ITS ---
Procedure Note - Detailed Date of Procedure 12/09/24 Pre-op Diagnosis right knee hematoma Prepatellar bursitis Post-op Diagnosis Same Procedure Performed Excision right knee prepatellar bursa Surgeon Leonardo Rider MD [employer] 1[employer] assistant [employer] public [employer] Anesthesia General Indications 34-year-old woman with sustained fall on the front of right knee. Developed hematoma in the prepatellar bursa. Unable to be aspirated. Pain and swelling persistent. Presents for operative treatment. Findings Incorporated hematoma of the right prepatellar suprapatellar bursa. Mild sanguinous fluid. Description of Procedure Patient identified in the preoperative holding. Informed consent given. Operative extremity marked. Patient received intravenous antibiotics. Patient brought to the operating room where underwent general anesthetic by anesthesia team. Positioned supine on operating room table. Time-out performed confirming the patient, site of the surgery and the plan. Right knee prepped and draped the usual sterile surgical fashion using a ChloraPrep skin solution. Local anesthetic with 0.5% Marcaine with epinephrine. A longitudinal incision was made with 15 blade knife in the midline of the knee just superior to the patella. Full-thickness skin flaps were developed which allowed exposure of the fascia. Fascia was incised in line with the skin incision which allowed evaluation of the suprapatellar portion of the prepatellar bursa. The hematoma was noted to be incorporated into the bursal tissue. There was some 3 sanguinous fluid which was suctioned. Metzenbaum scissors then used to sharply excise the prepatellar bursa superior to the patella. Elevation of the bursa was then continued distally to the infrapatellar region. Excess fluid was removed. Wound was then thoroughly irrigated with saline. Meticulous hemostasis with electrocautery. Fascia was closed with 2-0 Vicryl interrupted suture. Subcutaneous tissue repaired with 3-0 Monocryl interrupted suture and s kin repaired with 3-0 Monocryl running subcuticular stitch and skin glue. Sterile dressing applied. The patient was then woken from anesthesia, extubated and taken to the recovery room in stable condition. All sponge, needle, instrument counts were correct at the end of the case. Implants None Estimated Blood Loss 10 Tourniquet Time Total Tourniquet Time: 0 Drains No Packing No Pathology None sent Complications None Condition Stable Disposition PACU [facility] Billing Surgery - Charge Forward: Surgery Billing ([id number])
[2024-12-09] MEDS: oxyCODONE HCL (*CRX) 5 MG TAB IR PO (12:38)
== END 2024-12-09 13:07 | disposition home or self-care (01) ==
PROVIDERS: Visit Provider Orthopaedic Surgery
PROC: (CPT 27340; principal; 2024-12-09 10:30)
DX: S80.01XA Contusion of right knee, initial encounter (principal); M70.41 Prepatellar bursitis, right knee; W19.XXXA Unspecified fall, initial encounter; E66.9 Obesity, unspecified; Z68.34 Body mass index [BMI] 34.0-34.9, adult
CPT/HCPCS: 27340; A9270; J1100; J1885; J2250; J2405; J2704; J3010; J3373; J7120

== ENCOUNTER 2025-02-07 01:10 | Day surgery (SDC) | payer BC, SELFPAY ==
--- OUTSIDE RECORDS SUMMARY | 2000-06-20 11:45 | XMS_ITS | Continuity of Care Document ---
Author Organization [facility] Address [address] [place] [address] Phone Care Team Providers Care Noc Engineer Name Role Phone Lechuga OD, Florentino Unavailable Unavailable Advance Directives Directive Yes / No Effective Date File Name No Information Encounters Encounter Description Practice Location Reason(s) For Visit Diagnoses Date Provider Providers Copied on Encounter [facility], [address], [place], [place], [id number], [place] tel:[phone] [facility] No Information [address] Lechuga OD Florentino. [address] , [address], [place], [address], [place]. tel:[phone] Family History Family Member Type Diagnosis Age At Onset No Information Payers Payer name Insurance type Covered republican ID Authoriza tion(s) Medicaid [facility] [id number] Social History Type Description Quantity Date Captured Comments Sex Female Smoking Status No Information Chief Complaint And Reason For Visit No Information Reason For Referral Reason For Referral No Information History Of Present Illness Encounter Date Complaint History Of Prese nt Illness No Information Functional Status Date Functional Assessmen t No Information Instructions Date Instruction Additional Infor mation No Information Assessments Type Assessment Date No Information Patient Care Teams Name Effective Dates (start - stop) Status Members No Information
[2025-01-31 08:39] VITALS: BMI 34.8
--- NOTE | 2025-01-31 08:39 | PC.NURSE ---
[facility] has started construction of its new state of the art ER which will open Spring 2026. With this, we anticipate parking may be a challenge for some our surgical patients and families. Parking spaces are limited but are available for all Surgical, obstetrics, and ER patients sharing this lot. If you arrive and find you are having a hard time finding a parking space, please note that we understand the challenges, please drive around the hospital and park near Hospital Entrance 1. When you enter this entrance, you can ask a volunteer to direct or take you back to the surgical waiting area to check in. We appreciate everyone?s understanding of these expected challenges while we build for your future. Report to the Outpatient Waiting Room, entrance under the green pavilion located off [address], at time _0845_ on date _[phone]_. Planned Procedure Time: _1045_.? Time changes happen often and if your time is changed the preop area will call you the afternoon before. - You and your visitor will be asked to self-screen and do not enter if you have any COVID symptoms. Please call surgeon if you need to reschedule. - A mask is optional within the hospital at this time. Patients may have clear liquids (water, carbonated beverages, clear teas, apple juice) until 3 hours prior to surgery with a maximum of 20 ounces. - No food from midnight until time of surgery and no smoking, or chewing tobacco (or any form of nicotine). No chewing gum, candy or mints. Take only the following medications with a SIP of water on the morning of surgery: DO NOT STOP ANY OF YOUR OTHER PRESCRIPTION MEDICATIONS PRIOR TO SURGERY EXCEPT THE FOLLOWING Hold all vitamins and supplements for 3 days per anesthesiologist. Medications to discontinue per physician Please ask Dr Jo's office if Ibuprofen and Methocarbamol need to be stopped before surgery. Date to take last dose Please no make-up, nail nicaraguan, hairspray, perfume, deodorant, or body powder the day of surgery.? No jewelry (including any body piercings) or valuables the day of surgery, leave them at home.? Please take a shower or bath the night before, or the morning of, surgery with an antibacterial soap.? Wear comfortable, loose fitting clothing.? - Jewelry must be removed prior to entering the operating room.? Rings and piercings that are not removed may be cut off. - The hospital will not accept responsibility for valuables.? - Please leave all valuables, including medications, at home the day of surgery. If you are going home after surgery, a licensed horse and wagon driver must drive you home.? - NO public transportation without another adult if you receive anesthesia. - We recommend that an adult stay with you for 24 hours following discharge. - We also recommend that you do not drive, make important decision, drink alcoholic beverages, or take any drugs that were not prescribed by your health care provider for at least 24 hours after your discharge time. Follow any additional instructions given to you from your surgeon. Telephone instructions given to __Sara__and asked if any additional questions and then verbalized understanding. Patient advised to call surgeon office or pre surgery nurse liaison [phone] if any additional questions.
--- NOTE | 2025-02-07 07:53 | WPDHPUPDATE1 ---
History and Physical Update Update Date/Time: 02/07/25 07:53 History and Physical has been reviewed, including an updated exam of the patient. There are NO changes in the patient's condition. Risks, benefits, and alternatives have been discussed and questions answered. Patient agrees to proceed with procedure.
--- NOTE | 2025-02-07 07:54 | PM.HPGS ---
History of Present Illness History of Present Illness Consent: Risks, benefits, and alternatives have been discussed and questions answered. Patient agrees to proceed with procedure. Chief complaint: missing IUD Narrative: Sara Kennedy is a 34 year old female who presented for an IUD exchange in the office. Strings have been missing for several years an ultrasound confirmed intrauterine placement. Attempt to remove the IUD in the office was not successful. Patient presents today for hysteroscopic removal of IUD under sedation. Risks of infection, bleeding, and perforation are reviewed. Patient voices understanding and agrees to proceed. Review of Systems Review of Systems: not repeated day of surgery; patient states no changes in status PMFSH Past Medical History Medical History (Updated 02/07/25 @ 07:56 by Rajani Jo MD) Traumatic hematoma of right knee Rectal bleeding ADD (attention deficit disorder) Surgical History Surgical History (Updated 02/07/25 @ 07:55 by Rajani Jo MD) History of Family History Family History Grandparent Hypertension Cerebrovascular accident Father COPD (chronic obstructive pulmonary disease) Mother Hyperlipidemia Irritable bowel syndrome Depression Hypertension Social History Social History Years smoked: 10 Smoking status: Never smoker Tobacco type: cigarettes Alcohol intake: current Substance use: never Substance use type: does not use Do You Feel Safe in your Home?: Yes Lack of Transportation: No Lack of Food: Never True Current Housing: I Have Housing Concerned About Future Housing: No Difficulty Paying Gas/Electric Bills: No Difficulty Paying for Meds: No Currently Unemployed: No Education: Trade/Vocational Certificate Difficulty w/ Childcare or Family Care: No Living arrangements: with family Occupation/Education: occupation Gender identity (if verbalized by the patient): Female Sexual Orientation (if Verbalized by the Patient): Straight or Heterosexual Spiritual care concerns: No Meds Home Medications and Allergies Home Medications ?Medication ?Instructions ?Recorded ?Confirmed ?Type Women's Probiotic 1 tab-cap PO DAILY 08/15/23 01/31/25 History ibuprofen 800 mg tablet 800 mg PO Q6H #90 tabs 11/02/24 01/31/25 Rx methocarbamol 750 mg tablet 750 mg PO BID PRN Spasms #60 tabs 12/15/24 01/31/25 Rx phentermine 37.5 mg tablet 37.5 mg PO DAILY #30 tabs 02/01/25 Rx Allergies Allergy/AdvReac Type Severity Reaction Status Date / Time cephalexin Allergy Intermediate Hives Verified 01/31/25 08:30 Exam Const: General: healthy appearing and alert Orientation/consciousness: patient oriented x3 Resp: Effort & Inspection: normal respiratory effort : External Female Exam: normal external appearance Speculum Exam - Vagina: normal appearance of the vagina and normal vaginal discharge Speculum Exam - Cervix: normal appearance of the cervix Bimanual exam- vagina & uterus: uterine size normal and consistency normal Bimanual Exam- Adnexa, other: normal adnexae and No adnexal tenderness Neuro: General: patient oriented x3 Assessment and Plan Assessment and plan (1) IUD strings lost: Code(s): T83.32XA - Displacement of intrauterine contraceptive device, initial encounter Status: Acute Assessment and Plan: Plan to proceed with hysteroscopic removal of IUD
[2025-02-07] MEDS: ACETAMINOPHEN 500 MG TABLET 1000 MG PO (09:00)
[2025-02-07] MEDS: LACTATED RINGERS 1,000 ML 30 ML IV CONT (09:00)
--- NOTE | 2025-02-07 09:11 | WPDANESEPPF ---
Anes - Initial Pre Proc Eval Procedure: Operation Date: 02/07/25 10:45 Proposed Procedures p Hysteroscopy with Intrauterine Device Removal - Rajani Jo MD Date/Time: 02/07/25 09:11 Surgeon: Rajani Jo MD Pre Op Diagnosis: missing IUD Patient Data Age: 34 Gender: F Height: 1.57 m Weight: 86.4 kg Allergies Allergy/AdvReac Type Severity Reaction Status Date / Time cephalexin Allergy Intermediate Hives Verified 01/31/25 08:30 Home Medications ?Medication ?Instructions ?Recorded ?Confirmed ?Type Women's Probiotic 1 tab-cap PO DAILY 08/15/23 01/31/25 History ibuprofen 800 mg tablet 800 mg PO Q6H #90 tabs 11/02/24 01/31/25 Rx methocarbamol 750 mg tablet 750 mg PO BID PRN Spasms #60 tabs 12/15/24 01/31/25 Rx phentermine 37.5 mg tablet 37.5 mg PO DAILY #30 tabs 02/01/25 Rx Patient hx anesthesia problems: none Family hx anesthesia problems: none Results Review: All pre-operative results and documents have been reviewed as part of the pre-operative evaluation. [facility] Past Medical History Medical History (Updated 02/07/25 @ 07:56 by Rajani Jo MD) Traumatic hematoma of right knee Rectal bleeding ADD (attention deficit disorder) Surgical History Surgical History (Updated 02/07/25 @ 07:55 by Rajani Jo MD) History of Family History Family History Grandparent Hypertension Cerebrovascular accident Father COPD (chronic obstructive pulmonary disease) Mother Hyperlipidemia Irritable bowel syndrome Depression Hypertension Social History Social History Years smoked: 10 Smoking status: Never smoker Tobacco type: cigarettes Alcohol intake: current Substance use: never Substance use type: does not use Do You Feel Safe in your Home?: Yes Lack of Transportation: No Lack of Food: Never True Current Housing: I Have Housing Concerned About Future Housing: No Difficulty Paying Gas/Electric Bills: No Difficulty Paying for Meds: No Currently Unemployed: No Education: Trade/Vocational Certificate Difficulty w/ Childcare or Family Care: No Living arrangements: with family Occupation/Education: occupation Gender identity (if verbalized by the patient): Female Sexual Orientation (if Verbalized by the Patient): Straight or Heterosexual Spiritual care concerns: No Anes - Eval Final PreProcedure Day of Procedure 02/07/25 09:11 Patient weight: obese Heart: regular rate and rhythm Lungs: clear to auscultation Airway: Mallampati scale class II Neurological: alert and oriented Last oral intake: >/= 8 hours ASA classification: II Emergent: no Anesthetic plan: proceed Anesthesia type and monitoring: general GIVS and standard monitoring Results Review: All pre-operative results and documents have been reviewed as part of the pre-operative evaluation. Informed Consent: The patient's anesthetic plan and its attendant risks and benefits were discussed with the patient/family/POA. Questions were solicited and answers provided to the satisfaction of the patient/family/POA.
[2025-02-07 09:25] VITALS: BP 121/86; PULSE 65; RESP 16; TEMP 36.4; O2SAT 100
[2025-02-07 09:31] LABS: BEDSIDEPREGUCG Negative (Negative)
[2025-02-07 09:42] VITALS: BP 102/59; PULSE 69; RESP 18; O2SAT 97
--- NOTE | 2025-02-07 09:42 | P.OP_ITS ---
Procedure Note - Detailed Date of Procedure 02/07/25 Pre-op Diagnosis missing IUD strings Post-op Diagnosis Same Procedure Performed Hysteroscopic IUD removal Surgeon Rajani Jo MD Anesthesia MAC Findings IUD is in position with strings pointing upward. Endometrium appears grossly normal. Description of Procedure The patient was taken to the operating room and placed under anesthesia in the dorsal lithotomy position. She was prepped and draped in the usual sterile fashion. Stevenson speculum was placed in the vagina and the cervix grasped on the anterior lip with a tenaculum. The uterus sounds to 8cm. The hysteroscope was placed and the IUD was noted to be in position with the strings pointing upward. The hysteroscope was removed and the polyp forceps are placed but would not pass the internal os. Red was then dilating the cervix the hysteroscopic graspers were placed and the hysteroscope replaced. Using the graspers the strings were grasped and the hysteroscope removed with the IUD intact. The IUD was discarded. All instruments are removed. Sponge, needle, and instrument counts are correct per the OR staff. The patient was awakened from anesthesia and taken to recovery in stable condition. Estimated Blood Loss 5 Drains No Packing No Pathology None sent Complications No immediate complications Condition Stable Disposition PACU
[2025-02-07 10:10] VITALS: BP 113/64; PULSE 53; RESP 16; O2SAT 99
== END 2025-02-07 10:32 | disposition home or self-care (01) ==
PROVIDERS: PCP Family Medicine; Visit Provider Obstetrics & Gynecology Gynecology
PROC: 0U5B8ZZ Destruction of Endometrium, Via Natural or Artificial Opening Endoscopic (ICD-10-PCS; CPT 58563; principal; 2025-02-07 10:45)
DX: T83.32XA Displacement of intrauterine contraceptive device, initial encounter (principal); Y83.8 Other surgical procedures as the cause of abnormal reaction of the patient, or of later complication, without mention of misadventure at the time of the procedure; F98.8 Other specified behavioral and emotional disorders with onset usually occurring in childhood and adolescence; E66.9 Obesity, unspecified; Z68.35 Body mass index [BMI] 35.0-35.9, adult; Z79.1 Long term (current) use of non-steroidal anti-inflammatories (NSAID); Z98.890 Other specified postprocedural states
CPT/HCPCS: 58579; A9270; J1885; J2003; J2250; J2704; J7120